=== PATIENT | male | born 1965 | race Caucasian/White ===

== ENCOUNTER 2022-06-24 18:18 | Emergency (ER) | payer OTHER, MEDICARE ==
[~2022-06-24] VITALS: Ht 175.3 cm; Wt 86.2 kg
--- NOTE | ~2022-06-24 | EKG ---
[facility] [address] [place], [place] [address] Draft EK completed, results pending confirmation PATIENT NAME: SASCHA GARRISON Electrocardiogram DATE OF : 65 PHYSICIAN: PRELIMINARY REPORT #: [id number] REPORT IS CONFIDENTIAL AND NOT TO BE RELEASED WITHOUT AUTHORIZATION
[2022-06-24] MEDS ORDERED: K-TAB ER20 MEQ PO (21:49)
[2022-06-24] MEDS ORDERED: LASIX20 MG PO (21:49)
== END 2022-06-24 22:15 | disposition home or self-care (01) ==
LOC: ED 18:18
DX: R05.9 Cough, unspecified (principal); R09.81 Nasal congestion; I11.0 Hypertensive heart disease with heart failure; I50.9 Heart failure, unspecified; Z20.822 Contact with and (suspected) exposure to COVID-19
CPT/HCPCS: 36415; 71046; 80053; 83880; 84484; 85025; 87502; 93005; 93010; 96374; 99283-25; J1940; U0003

== ENCOUNTER 2022-06-29 21:55 | Emergency (ER) | payer OTHER, MEDICARE ==
[~2022-06-29] VITALS: Ht 175.3 cm; Wt 86.2 kg
[~2022-06-29 21:55] MED LIST: K-TAB ER20 MEQ PO; LASIX20 MG PO
--- OUTSIDE RECORDS SUMMARY | 2022-06-29 21:58 | XMS ---
PreManage Notification: SASCHA GARRISON Security [employer] Events No recent Security Events currently on file CRITERIA MET - [facility] - 2 Visits in 30 Days CARE PROVIDERS There are no care providers on record at this time. Maddie has no Care Guidelines for this patient. [facility]12 MO.) [facility] NOTE: Visits indicate total known visits. ED/C VISIT TRACKING (12 MO.) 06/29/2022 21:56 [facility] [place] [facility]: Emergency COMPLAINT: - SOB 06/24/2022 18:[address] [facility] [place] TYPE: Emergency COMPLAINT: - COUGH AND DIZZY DIAGNOSES: - Heart failure, unspecified - Nasal congestion - Cough, unspecified - Hypertensive heart disease with heart failure - Contact with and (suspected) exposure to COVID-19 INPATIENT VISIT TRACKING (12 MO.) No inpatient visits to display in this time frame [email or web address]
[2022-06-29] MEDS ORDERED: GUAIFEN-CODEINE10 ML PO (22:33)
== END 2022-06-29 22:54 | disposition home or self-care (01) ==
LOC: ED 21:55
DX: J18.9 Pneumonia, unspecified organism (principal); I11.0 Hypertensive heart disease with heart failure; I50.9 Heart failure, unspecified; Z79.899 Other long term (current) drug therapy
CPT/HCPCS: 71045; 87265; 94640; 99285-25